=== PATIENT | male | born 1970 | race Caucasian/White ===

== ENCOUNTER 2021-06-25 15:33 | Emergency (ER) | payer SELFPAY ==
[~2021-06-25 15:33] MED LIST: Iopamidol 370 76% 100 ML VIAL ONE
[2021-06-25] MEDS ORDERED: methylPREDNISolone Sod Succ/PF 125 MG/2 ML VIAL ONE (15:40)
[2021-06-25] MEDS ORDERED: Naloxone HCl 0.4 mg/ml Vial ONE (15:40)
[2021-06-25] MEDS ORDERED: Famotidine/PF 20 mg/2ml Vial ONE (15:40)
[2021-06-25] MEDS ORDERED: EPINEPHrine 1 MG/ML VIAL ONE (15:41)
[2021-06-25] MEDS ORDERED: diphenhydrAMINE 50 MG/ML VIAL ONE (15:46)
[2021-06-25 16:54] LABS: Acetaminophen Less than 6.0 mcg/mL (10.0-30.0); Alcohol Less than 10 mg/dL (Less than 10); Salicylate Less than 8.0 mg/dL (15.0-30.0)
[2021-06-25 16:56] LABS: Calc. Creatinine Clearance 0 mL/min (70-130); Carbon Dioxide 16 mmol/L (22-29)
[2021-06-25 17:23] LABS: Bilirubin Negative (Negative); Blood, Urine Negative (Negative); Clarity Clear (Clear); Glucose, Urine (Dipstick) Normal (Negative); Ketone, Urine Negative (Negative); Leukocyte Negative Leu/uL (Negative); Nitrite Negative (Negative); Protein, Urine (Dipstick) Negative (Neg-Trace); Urobilinogen Normal mg/dL (Less than 2)
[2021-06-25 17:24] LABS: Specific Gravity, Urine 1.045 (1.002-1.036)
[2021-06-25 17:32] LABS: Amphetamine Detected (NotDetected); Barbiturates Screen Not Detected (NotDetected); Benzodiazepine Screen Not Detected (NotDetected); Cocaine Metabolite Screen Not Detected (NotDetected); Methadone Not Detected (NotDetected); Methamphetamine Detected (NotDetected); Opiate Screen Not Detected (NotDetected); Oxycodone Screen Not Detected (NotDetected); Phencyclidine (PCP) Not Detected (NotDetected); THC/Cannabinoid Screen Not Detected (NotDetected); Tricyclic Screen Not Detected (NotDetected)
[2021-06-25 18:05] LABS: White Blood Cell (WBC) Count 22.8 thou/uL (4.8-10.8)
[2021-06-25 18:06] LABS: Red Blood Cell (RBC) Count 5.24 mill/uL (4.70-6.10)
[2021-06-25 18:07] LABS: Hemoglobin 16.9 g/dL (14.0-18.0); Mean Corpuscular HGB CONC 33.2 g/dL (32.0-36.0); Mean Corpuscular Hemoglobin 32.2 pg (27.0-31.0); Mean Corpuscular Volume 96.8 fL (78.0-98.0); RBC Distribution Width 11.8 % (11.5-14.5)
[2021-06-25 18:08] LABS: Mean Platelet Volume 6.5 fL (7.4-10.4); Platelet Count 314 thou/uL (130-400)
[2021-06-25 18:12] LABS: Band 20 % (5-11); Lymphocytes 4 % (21-51); Monocytes 8 % (0-10); Neutrophil 66 % (42-75); Reactive Lymphocytes 2 % (0-10)
[2021-06-25 18:13] LABS: Platelet Morphology Comment Appears Adequate
[2021-06-25 18:16] LABS: MDiff Complete? YES; RBC Morphology Normal
[2021-06-25 18:18] LABS: BUN (Urea Nitrogen) 13 mg/dL (8.9-20.6); Chloride 106 mmol/L (98-107); Potassium 4.5 mmol/L (3.5-5.1); Sodium 133 mmol/L (136-145)
[2021-06-25 18:19] LABS: Bilirubin, Total 0.2 mg/dL (0.2-1.2); Calcium 8.5 mg/dL (7.8-10.44); Glucose 154 mg/dL (70-105)
[2021-06-25 18:20] LABS: Albumin 3.5 g/dL (3.5-5.0); Globulin 2.4 g/dL (2.4-3.5); Protein, Total 5.9 g/dL (6.0-8.3)
[2021-06-25 18:21] LABS: AST (SGOT) 20 U/L (5-34); Alkaline Phosphatase 30 U/L (40-110)
[2021-06-25 18:22] LABS: ALT (SGPT) 32 U/L (8-55); Lipase 56 U/L (8-78)
[2021-06-25 18:23] LABS: Anion Gap 16 mmol/L (10-20)
== END 2021-06-25 18:13 | disposition left against medical advice (07) ==
LOC: ERS 15:33 → EDBD 15:33 → ERS 18:13
DX: T78.2XXA Anaphylactic shock, unspecified, initial encounter (principal)
CPT/HCPCS: 36415; 71045; 74177; 80053; 80306; 80307; 81003; 83605; 83690; 84443; 84484; 85025; 87040; 87086; 93005; 96372; 96374; 96375; J0171; J1200; J2310; J2930; Q9967; S0028

== ENCOUNTER 2024-06-23 08:45 | Emergency (ER) | payer OTHER, SELFPAY ==
[2024-06-23] MEDS ORDERED: Lidocaine 1% (PF) 30 ML VIAL ONE (09:10)
== END 2024-06-23 10:05 | disposition home or self-care (01) ==
LOC: ERS 08:45
DX: S61.011A Laceration without foreign body of right thumb without damage to nail, initial encounter (principal); W26.0XXA Contact with knife, initial encounter
CPT/HCPCS: 12002; 99282